=== PATIENT | male | born 2000 | race Asian ===

== ENCOUNTER 2024-01-02 18:41 | Emergency (ER) | payer BC | END 2024-01-02 21:02 | disposition home or self-care (01) | LOC: ERS 18:41 | DX: S67.193A Crushing injury of left middle finger, initial encounter (principal); S61.213A Laceration without foreign body of left middle finger without damage to nail, initial encounter; W23.1XXA Caught, crushed, jammed, or pinched between stationary objects, initial encounter | CPT/HCPCS: 99283 ==